=== PATIENT | male | born 1995 | race Two or more races ===

== ENCOUNTER → 2020-05-28 | Outpatient (CLI) | payer SELFPAY | LOC: M LABSMTC 09:48 | PROVIDERS: ATTEND Pediatrics | DX: Z11.52 Encounter for screening for COVID-19 (principal) ==

== ENCOUNTER → 2020-12-26 | Outpatient (CLI) | payer OTHER ==
--- NOTE | 2020-12-27 04:31 | REP ---
INDICATION: PAIN COMPARISON: None. TECHNIQUE: AP, lateral, bilateral oblique views left hand. FINDINGS: The osseous structures and joint spaces are intact and normal. There is no evidence for acute fracture or dislocation. Surrounding soft tissues are unremarkable. No subcutaneous emphysema or radiodense foreign body. IMPRESSION: Normal age-appropriate left hand radiographs. No acute fracture or dislocation. <Electronically signed by Jamar Strong > 12/27/20 0425
== END ==
LOC: M WUC 15:54
PROVIDERS: ATTEND Physician Assistant
DX: M79.642 Pain in left hand (principal)